=== PATIENT | male | born 1990 | race African-American/Black ===

== ENCOUNTER 2021-02-23 16:52 | Emergency (ER) | payer MEDICAID ==
[~2021-02-23] VITALS: Ht 162.6 cm; Wt 113.4 kg
[2021-02-23 17:01] VITALS: BP 144/89
--- NOTE | 2021-02-23 17:06 | NUR ---
THE PATIENT BIBS FOR HAVING HEADACHE/COUGH AND SOB X 2 DAYS. IN ROOM AIR AND DENIES SOB AT THIS TIME. RESPIRATION REGULAR AND UNLABORED. WILL CONTINUE TO MONITOR THE PATIENT.
[2021-02-23] MEDS ORDERED: IBUPROFEN 400 MG TABLET ONE (17:16)
[2021-02-23] MEDS ORDERED: GUAIFENESIN LA 600 MG TABLET.SA PO ONE ×2 (17:16→17:30)
[2021-02-23] MEDS ORDERED: IBUPROFEN 400 MG TABLET PO ONE (17:30)
--- NOTE | 2021-02-23 17:54 | NUR ---
COVID SWAB DONE AND SENT TO THE LAB
[2021-02-23] MEDS ORDERED: IBUP-1957 PO (18:00)
[2021-02-23] MEDS ORDERED: GUAI1TBM19 PO (18:00)
[2021-02-23] MEDS ORDERED: BENZ-13 PO (18:00)
--- NOTE | 2021-02-23 18:18 | NUR ---
Patient discharged to home in stable condition. Written and verbal after care instructions given. Patient verbalizes understanding of instruction.
== END 2021-02-23 18:18 | disposition home or self-care (01) ==
LOC: ER 16:59
DX: J06.9 Acute upper respiratory infection, unspecified (principal); Z20.822 Contact with and (suspected) exposure to COVID-19
CPT/HCPCS: 71045; 87426; 99284; C9803

== ENCOUNTER 2021-11-10 12:22 | Emergency (ER) | payer MEDICAID ==
[~2021-11-10] VITALS: Ht 162.6 cm; Wt 125.2 kg
[~2021-11-10 12:22] MED LIST: BENZ-13 PO; GUAI1TBM19 PO; IBUP-1957 PO
[2021-11-10 12:30] VITALS: BP 154/93
--- NOTE | 2021-11-10 12:33 | NUR ---
BIBS FOR C/O LEFT EAR RINGING X2 DAYS. DENIES PAIN. WILL CONTINUE TO MONITOR THE PATIENT.
--- NOTE | 2021-11-10 13:28 | NUR ---
Patient discharged to home in stable condition. Written and verbal after care instructions given. Patient verbalizes understanding of instruction.
== END 2021-11-10 13:29 | disposition home or self-care (01) ==
LOC: ER 12:25
DX: H93.12 Tinnitus, left ear (principal); Z79.899 Other long term (current) drug therapy

== ENCOUNTER 2023-08-09 09:48 | Emergency (ER) | payer MEDICAID ==
[~2023-08-09] VITALS: Ht 162.6 cm; Wt 127.0 kg
[2023-08-09 10:51] LABS: BASOPHILS # (AUTO) 0.1 K/uL (0.0-0.2); BASOPHILS % (AUTO) 0.6 % (0.0-2.0); EOSINOPHILS # (AUTO) 0.1 K/uL (0.0-0.7); HEMATOCRIT 43 % (39-51); HEMOGLOBIN 14.4 g/dL (13.5-17.5); LYMPHOCYTES # (AUTO) 3.7 K/uL (0.8-4.8); LYMPHOCYTES % (AUTO) 37.4 % (20.0-44.0); MEAN CORPUSCULAR HEMOGLOBIN 30 PG (26.0-33.0); MEAN CORPUSCULAR HGB CONC 33 g/dl (31.0-36.0); MEAN CORPUSCULAR VOLUME 91 fL (80-96); MONOCYTES # (AUTO) 0.6 K/uL (0.1-1.30); MONOCYTES % (AUTO) 6.4 % (2.0-12.0); NEUTROPHILS # (AUTO) 5.4 K/uL (1.8-8.9); NEUTROPHILS % (AUTO) 54.6 % (43.0-81.0); PLATELET COUNT (AUTO) 288 K/uL (150-450); RED BLOOD CELL COUNT(AUTO) 4.79 MIL/uL (4.5-6.0); RED CELL DISTRIBUTION WIDTH 14.5 % (11.5-15.0); WHITE BLOOD COUNT (AUTO) 9.8 K/uL (4.3-11.0)
[2023-08-09 10:59] LABS: CARBON DIOXIDE 28 mmol/L (21-32); CHLORIDE 101 mmol/L (98-107); CREATININE 0.9 mg/dL (0.6-1.3); GLUCOSE 95 mg/dL (74-106); SODIUM SERUM 137 mmol/L (136-145); UREA NITROGEN, BLOOD 10 mg/dL (7-18)
[2023-08-09] MEDS ORDERED: IBUP-1955 PO (11:37)
[2023-08-09 12:05] VITALS: BP 133/74; TEMP 98.8; O2SAT 98
== END 2023-08-09 12:06 | disposition home or self-care (01) ==
LOC: ER 09:48
DX: J06.9 Acute upper respiratory infection, unspecified (principal); R07.89 Other chest pain; R05.9 Cough, unspecified; R09.81 Nasal congestion; J02.9 Acute pharyngitis, unspecified
CPT/HCPCS: 36415; 71045-TC; 80048-TC; 84484-TC; 85025-TC

== ENCOUNTER 2023-11-01 07:54 | Emergency (ER) | payer MEDICAID ==
[~2023-11-01] VITALS: Ht 167.6 cm; Wt 133.8 kg
[~2023-11-01 07:54] MED LIST changes: +IBUP-1955 PO
[2023-11-01 08:28] LABS: BASOPHILS % (AUTO) 0.4 % (0.0-2.0); EOSINOPHILS # (AUTO) 0.1 K/uL (0.0-0.7); EOSINOPHILS % (AUTO) 0.9 % (0.0-6.0); HEMATOCRIT 43 % (39-51); HEMOGLOBIN 14.1 g/dL (13.5-17.5); MEAN CORPUSCULAR HEMOGLOBIN 29 PG (26.0-33.0); MEAN CORPUSCULAR HGB CONC 33 g/dl (31.0-36.0); MEAN CORPUSCULAR VOLUME 89 fL (80-96); MONOCYTES # (AUTO) 0.5 K/uL (0.1-1.30); MONOCYTES % (AUTO) 5.6 % (2.0-12.0); NEUTROPHILS # (AUTO) 5.3 K/uL (1.8-8.9); NEUTROPHILS % (AUTO) 59.1 % (43.0-81.0); PLATELET COUNT (AUTO) 312 K/uL (150-450); RED BLOOD CELL COUNT(AUTO) 4.81 MIL/uL (4.5-6.0); RED CELL DISTRIBUTION WIDTH 13.8 % (11.5-15.0)
[2023-11-01] MEDS: IV NS 0.9% 1,000 ML BAG IV ONE (08:28)
[2023-11-01 08:43] LABS: ALBUMIN 3.1 g/dL (3.4-5.0); BILIRUBIN,DIRECT 0.1 mg/dL (0.0-0.2); BILIRUBIN,TOTAL 0.6 mg/dL (0.2-1.0); CALCIUM, SERUM 9.4 mg/dL (8.5-10.1); CREATININE 0.9 mg/dL (0.6-1.3); POTASSIUM 3.9 mmol/L (3.5-5.1)
[2023-11-01 09:29] LABS: APPEARANCE,URINE CLEAR (CLEAR); BILIRUBIN,URINE NEGATIVE (NEGATIVE); BLOOD, URINE TRACE-INTA Ery/uL (NEGATIVE); COLOR,URINE YELLOW (YELLOW); KETONES,URINE NEGATIVE (NEGATIVE); LEUKOCYTE ESTERASE ,URINE NEGATIVE (NEGATIVE); NITRITE, URINE NEGATIVE (NEGATIVE); PROTEIN,URINE NEGATIVE (NEGATIVE); UGLUCOSE NEGATIVE (NEGATIVE)
[2023-11-01 09:34] LABS: ADD URINE CULTURE NO; BACTERIA,URINE Rare /HPF (None Seen); SQUAMOUS EPITHELIAL CELL,UR Few /HPF (None Seen); WBC,URINE 0-2 /HPF (0-3)
[2023-11-01] MEDS ORDERED: IBUP-1955 PO (09:49)
[2023-11-01 10:01] VITALS: BP 133/88; TEMP 98.6; O2SAT 98
== END 2023-11-01 10:03 | disposition home or self-care (01) ==
LOC: ER 08:01
DX: R10.32 Left lower quadrant pain (principal); R31.29 Other microscopic hematuria; K59.00 Constipation, unspecified
CPT/HCPCS: 99285; 74176; 96360; 85025; 80048; 83690; 80076; 81001; 36415; J7030